=== PATIENT | female | born 1965 | race Caucasian/White ===

== ENCOUNTER → 2016-12-13 | Outpatient (CLI) | payer BC ==
[~2016-12-13] MED LIST: ALBUTEROL17 GM INH; ALLERGY MED; AUGMENTIN; BENTYL20 MG PO; BENZONATATE PO; CATAFLAM50 MG PO; CLARITIN10 MG PO; FLEXERIL10 M1; LORTAB 7.51 TAB 7.5/; MAXALT5 MG; NEXIUM; NEXIUM PO; PERCOCET; PHENERGAN; VICODIN PO; VOLTAREN75 MG PO; ZOFRAN; ZOFRAN PO
--- NOTE | ~2016-12-13 | MR103 ---
[facility]. [facility] A Service of [facility] & [facility] RADIOLOGY TEXT RESULTS PATIENT: MAX HARRIS LOCATION: [facility] : 63 UNIT #: [id number] AGE: [address]: Daylin Dodson MD SEX: F ORDER DR: [id number] [id number] O MR#: [id number] Acc #: [id number] NAME: MAX HARRIS : 1965 SEX: F STUDY DATE/TIME: 12/13/2016 16:59 UNIT: [facility] ROOM: STUDY DESCRIPTION: MR Knee Wo Contrast Lt Attending Physician: Daylin Dodson M.D. Referring Physician: Daylin Dodson M.D. Ordering Physician: Daylin Dodson M.D. Primary Care Physician: Daylin Dodson M.D. MRI CENTER REPORT This report is preliminary unless electronic signature is present. EXAM MRI left knee, 12/13/2016. COMPARISON STUDIES Left knee radiographs, 08/12/2016. HISTORY Order states 7 months of left knee pain. Failed NSAIDs. Worse when walking, putting pressure. Rule-out ligament, meniscus tear. Left lateral knee pain. History sheet states osteoarthritis for 20 years. Wear and tear. Increasing left knee pain for 7 months, lateral greater than medial. Injury May 2016, fell at concert onto her left knee. No knee surgery. FINDINGS There is a minimal effusion without a popliteal cyst. Patellofemoral alignment is normal. 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 There is also high-grade chondromalacia of the femoral trochlea predominantly in the medial fact. The quadriceps and patellar tendons are intact. Cruciate ligaments are normal. The lateral meniscus, lateral collateral ligament complex, and popliteus tendon are intact. The articular cartilage of the lateral compartment is normal. There is a longitudinal complex tear in the posterior half of the medial meniscus. There is a dominant longitudinal oblique undersurface tear in the posterior body and horn, free margin irregularity, and diminutive ST[facility] A Service of [facility] & [facility] RADIOLOGY TEXT RESULTS PATIENT: MAX HARRIS LOCATION: [facility] : 63 UNIT #: [id number] AGE: [address]: Daylin Dodson MD SEX: F ORDER DR: size, truncation, and slight extrusion of the midbody segment. No prior surgery is reported. No displaced meniscal flap or fragment is seen. There is medial compartment arthrosis or joint space narrowing, marginal osteophyte formation, mild subarticular edema predominating along the medial corner of the tibia, and [id number] grade chondromalacia of the weightbearing medial compartment, especially of the femoral condyle. There is reactive edema in the MCL bursa. MCL is intact. No marrow lesion, fracture, or sizable loose body is identified. The lateral collateral ligament complex and popliteus tendon are intact. Fluid in the popliteus sheath is nonspecific. There is lobulated fluid signal along the anterolateral joint line extending towards the ACL insertion. It is most compatible with an intraarticular synovial or ganglion cyst. IMPRESSION 1. The predominant abnormality is medial compartment arthrosis with a longitudinal mildly complex medial meniscus tear detailed above without a displaced meniscal fragment. 2. Patellofemoral arthrosis detailed above. 3. The lateral compartment is unremarkable. 4. Synovial/ganglion cyst along the anterolateral joint line of undetermined significance. 5. Small effusion. 6. No fracture or loose body. Dictated by... Tasia Garcia M.D. THIS IS AN ELECTRONICALLY VERIFIED REPORT Tasia Gracia M.D. at 12/14/2016 11:35 AM ASA/gabriel TD: 12/14/2016 10:51 JOB #: [id number] MRI CENTER REPORT Page 1 of 1
== END | disposition home or self-care (01) ==
LOC: SMRI 16:34
DX: M25.562 Pain in left knee (principal); M17.12 Unilateral primary osteoarthritis, left knee; M23.204 Derangement of unspecified medial meniscus due to old tear or injury, left knee; M25.462 Effusion, left knee
CPT/HCPCS: 73721